=== PATIENT | male | born 1940 | race Caucasian/White ===

== ENCOUNTER 2018-10-16 12:29 | Day surgery (SDC) | payer MEDICARE ==
[~2018-10-16] VITALS: Ht 177.8 cm; Wt 74.4 kg
[2018-10-16] VITALS (8 sets, daily range): BP systolic 117–138; BP diastolic 69–82
[2018-10-16] MEDS ORDERED: normal saline 1000ml 1,000 ML IV SCH (12:50)
[2018-10-16] MEDS ORDERED: diphenhydrAMINE 25mg capsule PO ONE (12:55)
[2018-10-16] MEDS ORDERED: UMEC1DIS (13:19)
[2018-10-16] MEDS ORDERED: ASPI-1265 PO (13:19)
[2018-10-16] MEDS ORDERED: GABA600T13 PO (13:19)
[2018-10-16] MEDS ORDERED: FURO-149 PO (13:19)
[2018-10-16] MEDS ORDERED: FLO0.4C PO (13:19)
[2018-10-16] MEDS ORDERED: APIX5TAB3 PO (13:19)
[2018-10-16] MEDS ORDERED: AMIO100T4 PO (13:19)
[2018-10-16] MEDS ORDERED: POTA20PA40 PO (13:19)
[2018-10-16 14:30] LABS: BASOPHILS # (AUTO) 0.1 X10'3 (0-0.2); BASOPHILS % (AUTO) 1.6 % (0-1); EOSINOPHILS # (AUTO) 0.1 X10'3 (0-0.9); EOSINOPHILS % (AUTO) 2.2 % (0-6); HEMATOCRIT 48.9 % (42.0-52.0); HEMOGLOBIN 16.5 g/dl (14.0-17.9); MEAN CORPUSCULAR HEMOGLOBIN 33.7 PG (27.0-31.0); MEAN CORPUSCULAR HGB CONC 33.8 g/dL (33.0-36.5); MEAN CORPUSCULAR VOLUME 99.7 FL (78-98); MONOCYTES # (AUTO) 0.4 X10'3 (0-0.9); MONOCYTES % (AUTO) 8.3 % (2-12); NEUTROPHILS # (AUTO) 2.1 X10'3 (1.8-7.7); NEUTROPHILS % (AUTO) 44.9 % (42-75); PLATELET COUNT 116 X10'3 (140-440); RED BLOOD COUNT 4.91 X10'6 (4.70-6.10); RED CELL DISTRIBUTION WIDTH 15.9 % (11.5-14.5); WHITE BLOOD COUNT 4.7 X10'3 (4.5-11.0)
[2018-10-16 14:35] LABS: ALBUMIN 3.8 G/DL (3.4-5.0); ANION GAP 6 (8-16); BLOOD UREA NITROGEN 20 MG/DL (7-18); BUN/CREATININE RATIO 16.8 (5.4-32.0); CHLORIDE 102 MMOL/L (99-107); CREATININE 1.19 MG/DL (0.60-1.10); GLUCOSE 82 MG/DL (70-104); MAGNESIUM 2.2 MG/DL (1.5-2.4); SODIUM 139 MMOL/L (135-145); TOTAL CARBON DIOXIDE 30.8 MMOL/L (24-32); eGFR 59 ML/MIN
[2018-10-16 14:36] LABS: POTASSIUM 4.1 MMOL/L (3.5-5.1)
[2018-10-16] MEDS ORDERED: fentaNYL/PF 50MCG/1 ML 2ML syringe ONE (15:14)
[2018-10-16] MEDS ORDERED: LIDOcaine 1% (10mg/ml)w/preservative injection 20ml MDV ONE (15:14)
[2018-10-16] MEDS ORDERED: heparin 1,000unit/ml 10ml vial 10 ML ONE (15:14)
[2018-10-16] MEDS ORDERED: proCHLORperazine 10 MG/2 ml inj ONE (15:14)
[2018-10-16] MEDS ORDERED: midazolam 2 mg/2 ml injection ONE (15:14)
[2018-10-16] MEDS ORDERED: iohexol 350 MG/1 ML 200ml bottle ONE (15:15)
[2018-10-16] MEDS ORDERED: iohexol 350 MG/ML 50ML vial IV ONE (15:15)
[2018-10-16] MEDS ORDERED: HYDROcodone/acetaminophen 10/325mg tab PO PRN (16:25)
[2018-10-16] MEDS ORDERED: HYDROcodone/acetaminophen 5mg/325mg tablet PO PRN (16:25)
--- NOTE | 2018-10-16 17:00 | NUR ---
DR FRITZ CALLED AND SAID TO TAKE FEM STOP OFF IN 20 MINS AND CHANGED DISCHARGE TIME TO 1900.
== END 2018-10-16 19:00 | disposition home or self-care (01) ==
LOC: SSTAY O 12:29
PROVIDERS: ATTEND Internal Medicine Cardiovascular Disease
DX: I70.213 Atherosclerosis of native arteries of extremities with intermittent claudication, bilateral legs (principal); I25.10 Atherosclerotic heart disease of native coronary artery without angina pectoris; I48.91 Unspecified atrial fibrillation; J44.9 Chronic obstructive pulmonary disease, unspecified; G62.9 Polyneuropathy, unspecified; I44.7 Left bundle-branch block, unspecified; I11.0 Hypertensive heart disease with heart failure; I50.9 Heart failure, unspecified; I48.0 Paroxysmal atrial fibrillation; G40.909 Epilepsy, unspecified, not intractable, without status epilepticus; Z98.890 Other specified postprocedural states; Z72.89 Other problems related to lifestyle
CPT/HCPCS: 36246; 36415; 75716; 80048; 83735; 85025; 99152; 99153; C1769; C1894; J0780; J1644; J2001; J2250; J3010; Q0163; Q9967; 36140; 36245; A4620; J7030